=== PATIENT | male | born 1965 | race Caucasian/White ===

== ENCOUNTER 2018-12-01 09:53 | Day surgery (SDC) | payer BC ==
[2018-11-30 12:39] VITALS: BMI 30.4
[2018-12-01] MEDS ORDERED: oxyCODONE HCL 10 MG SUSTAINED ACTING TABLET PO ONE ×2 (12:20→12:30)
[2018-12-01] MEDS ORDERED: BUPIVACAINE LIPOSOME/PF (EXPAREL) 266 MG/20 ML VIAL ONE (13:14)
[2018-12-01] MEDS ORDERED: MIDAZOLAM HCL 2 MG/2 ML SINGLE DOSE VIAL ONE ×2 (13:14→13:53)
[2018-12-01] MEDS ORDERED: BUPIVACAINE HCL/PF (5 MG/ML) 30 ML VIAL IJ ONE (13:14)
[2018-12-01] MEDS ORDERED: fentaNYL CITRATE 250 MCG/5 ML VIAL ONE ×2 (13:30→14:51)
[2018-12-01] MEDS ORDERED: PROPOFOL 20 ML ONE ×10 (13:30→15:12)
[2018-12-01] MEDS ORDERED: GUM MASTIC/STORAX/MSAL/ALCOHOL 1 DRP DROPSBTL MC ONE (13:43)
[2018-12-01] MEDS ORDERED: LIDOCAINE 1%/EPI 1:100000 (20 ML MULTI DOSE VIAL) ONE (13:43)
[2018-12-01] MEDS ORDERED: THROMBIN (RECOMBINANT) 5,000 UNIT VIAL TP ONE (13:43)
[2018-12-01] MEDS ORDERED: THROMBIN (BOVINE) 5,000 UNIT VIAL TP ONE (14:55)
[2018-12-01] MEDS ORDERED: LIDOCAINE 1%/EPI 1:100000 (20 ML MULTI DOSE VIAL) INF ONE (14:55)
[2018-12-01] MEDS ORDERED: GELATIN SPONGE,ABSORBABLE 1 GM PACKET TP ONE (14:56)
[2018-12-01] MEDS ORDERED: LABETALOL HCL 5 MG/1 ML (100MG/20 ML VIAL) ONE (15:03)
[2018-12-01] MEDS ORDERED: oxyCODONE HCL 5 MG TABLET PO PRN ×6 (15:24→16:17)
[2018-12-01] MEDS ORDERED: LACTATED RINGERS SOLUTION 1,000 ML IV SCH ×2 (15:30→16:15)
[2018-12-01] MEDS ORDERED: ONDANSETRON 4 MG/2 ML VIAL IVPUSH PRN (16:09)
[2018-12-01] MEDS ORDERED: ACETAMINOPHEN 1000 MG/100 ML VIAL (NON FORMULARY) IVPB ONE (16:13)
--- NOTE | 2018-12-01 16:20 | OP ---
Operative Note - Note: Operative Date: 12/01/18 Pre-Operative Diagnosis: cervical stenosis Operation: anterior cervical disectomy fusion of C5-C6 and C6-C7 Surgeon: Charlie Ruth Corporate Real Estate Manager: Sera Taylor Anesthesiologist/ENVIRONMENTAL CONSTRUCTION ENGINEER: Jayda Jc Anesthesia: General Fluid Volume Replaced (mls): 1,800 Operative Report Dictated: Yes
--- NOTE | 2018-12-01 16:21 | SURG ---
Surgery Light Industrial Supervisor Note Light Industrial Supervisor: Sera Taylor PA-C Date of Service: 12/01/18 Diagnosis: cervical stenosis Procedure: Operation: anterior cervical disectomy fusion of C5-C6 and C6-C7 I was present for the entirety of the operative procedure. For further detail, please refer to operative report. Visit type - Case Type Case Type: Scheduled - Emergency Emergency Visit: No - New patient This patient is new to me today: Yes Date on this admission: 12/01/18
[2018-12-01] MEDS: ONDANSETRON 4 MG/2 ML VIAL IVPUSH PRN (17:12)
[2018-12-01] MEDS ORDERED: ACETAMINOPHEN INJECTION 100 ML IVPB ONE (17:13)
[2018-12-01] MEDS ORDERED: diazePAM 2 MG TABLET ONE (17:39)
[2018-12-01] MEDS ORDERED: ACETAMINOPHEN 500 MG TABLET (FP) PO SCH (18:00)
[2018-12-01] MEDS: diazePAM 2 MG TABLET PO SCH (18:00)
[2018-12-01] MEDS ORDERED: PSEUDOEPHEDRINE PO SCH (22:00)
[2018-12-01] MEDS ORDERED: CETIRIZINE HCL PO SCH (22:00)
[2018-12-01] MEDS ORDERED: [UNRECOGNIZED DRUG - OTHER] PO SCH (22:00)
[2018-12-01] MEDS: CEFAZOLIN 1 GM/D5W 1 GM/50 ML BAG IVPB SCH (22:04)
[2018-12-01] MEDS: DOCUSATE SODIUM 100 MG CAPSULE (FP) PO SCH (22:04)
[2018-12-02] MEDS: ONDANSETRON 4 MG/2 ML VIAL IVPUSH PRN (03:53)
[2018-12-02] MEDS: ACETAMINOPHEN 500 MG TABLET (FP) PO SCH ×2 (06:41→06:42)
[2018-12-02] MEDS: diazePAM 2 MG TABLET PO SCH (06:41)
[2018-12-02] MEDS: CEFAZOLIN 1 GM/D5W 1 GM/50 ML BAG IVPB SCH (06:42)
--- NOTE | 2018-12-02 07:34 | OP ---
DATE OF OPERATION: 12/01/2018 PREOPERATIVE DIAGNOSIS: Cervical stenosis, C5-C6, C6-C7. POSTOPERATIVE DIAGNOSIS: Cervical stenosis, C5-C6, C6-C7. PROCEDURE PERFORMED: 1. Anterior cervical discectomy and fusion, C5-C6. 2. Anterior cervical discectomy and fusion, C6-C7. 3. Placement of instrumentation, C5 to C7. SURGEON: Charlie Ruth MD CYBER SECURITY INSTRUCTOR: MAGGI Amaro ESTIMATED BLOOD LOSS: 50 mL. IV FLUIDS: Per Anesthesia. ANESTHESIA: General/NCP block. COMPLICATIONS: There were none. DISPOSITION: Patient brought to the PACU in stable condition. INDICATIONS FOR SURGERY: The patient is a 53-year-old gentleman who has been suffering from pain from his neck down his arm. He has also noticed significant weakness in his arm. X-rays and MRI were completed, which noted that he had cervical stenosis at C5-C6 and C6-C7. He had gone through an exhaustive course of treatment for this which included medications, physical therapy, as well as injections. Unfortunately, his pain continued to persist despite all this. At this point, risks, benefits, and alternatives were discussed, and the patient consented to surgery. OPERATIVE NOTE: Patient was brought into the operating room by the Anesthesia. After appropriate patient identification was performed, general anesthesia was given. NCP block was also given. Patient was placed supine on the OR table with his arms tucked in at his sides. A shoulder roll was placed beneath his neck to extend his neck to the point that he can tolerate in the preoperative holding area. A needle was taped onto his neck to sofie off the C5-C6 level, and x-rays taken to confirm this was correct. The needle was removed, and 10 mL of lidocaine with epinephrine was injected into his neck at this time. His neck was prepped and draped in the usual sterile manner. At this point, a time-out was completed. A 2-inch incision was made in the left side of his neck. Dissection was carried down to the platysma. The platysma was cut in line with the skin incision. Next, internal sternocleidomastoid as well as strap muscles was developed. Next, an internally rotated carotid sheath as well as trachea esophagus was developed. Peanuts were used to elevate off the prevertebral fascia. A needle was placed into the C5-C6. X-rays taken to confirm this was correct. Needle was removed, and Evelin pins were placed into the body of C5 and C7. A knife was used to incise the disc, and distraction was applied. A microscope was brought in. A Carrasco was used to remove the disc off of the end-plate using a series of pituitaries, Kerrrisons, and curettes. Discectomy was completed at this time. End-plates were decorticated. A cage filled with bone graft was placed into the C5-C6 and C6-C7. A screw was placed into the body of C5. A screw was placed into the body of C6. A screw was placed into the body of C7. [place] pins were removed. AP and lateral x-rays confirmed the instrumentation to be in good position. Final tightening was performed. The platysma was closed with a 2-0 Vicryl suture. Skin was closed with a 3-0 Monocryl suture. Dermabond was applied. Steri-Strips were applied. Sterile dressings were applied. Patient was placed supine on the OR bed, extubated in the OR, and brought to the PACU in stable condition. Rex [id number]
[2018-12-02] MEDS ORDERED: traMADol HCL 50 MG TABLET PO PRN (07:38)
[2018-12-02] MEDS ORDERED: oxyCODONE HCL 5 MG TABLET PO PRN (07:48)
--- NOTE | 2018-12-02 08:14 | PN ---
Progress Note (short form) - Note Progress Note: ANESTHESIA POSTOP 53 yo male POD#1 s/p ACDF under GETA Patient sitting in chair. Comfortable. N/V last night but much improved today. Pain adequately controlled. VSS, Afebrile Continue current care. Encouraged IS and ambulation as tolerated. Reassured patient N/V will subside.
[2018-12-02 09:14] VITALS: BP 165/92; PULSE 86; TEMP 98.2
[2018-12-02] MEDS: DOCUSATE SODIUM 100 MG CAPSULE (FP) PO SCH (09:43)
--- NOTE | 2018-12-02 17:32 | DS ---
Physical Exam: SUBJECTIVE: Patient seen and examined this am. He states that his RUE arm pain has improved and he is able to move it without pain. His nausea and vomiting have improved this am. No CP. OBJECTIVE: Vital Signs Temperature 98.2 F 12/02/18 09:13 Pulse Rate 86 12/02/18 09:13 Respiratory Rate 18 12/02/18 09:13 Blood Pressure 165/92 12/02/18 09:13 O2 Sat by Pulse Oximetry (%) 96 12/02/18 06:00 PHYSICAL EXAM GENERAL: The patient is awake, alert, and fully oriented, in no acute distress. NECK: Dressing c/d/i. No swelling and the neck remains soft. Soft collar in place. LUNGS: Breath sounds equal, clear to auscultation bilaterally. HEART: Regular rate and rhythm. ABDOMEN: Soft, nontender, nondistended. NEUROLOGICAL: Normal speech, gait not observed. [place] strength equal b/l. Raising b/l upper extremities above his head. LABS HOSPITAL COURSE: The patient was admitted to the Med-Surg Unit after an elective repair of their cervcial stenosis. Now, s/p ACDF C5-6 and C6-7. The day of surgery, the patient ambulated the hallways with assistance. Narcotic and non-narcotic pain management control was achieved with an oral and IV approach.An xray was obtained and confirmed hardware placement at C5-6 and C6 -7, no fractures or dislocations. Pat-operative IV ABX were administered. DVT prophylaxis was achieved with SCDs and early ambulation. The patient ambulated with Physical Therapy and no services were recommended upon discharge. Narcotic scripts and or muscle relaxants were checked with [facility] prior to escibe. The discharge instructions and an oral pain management plan were reviewed with the patient. All questions answered. Above plan discussed with Dr. Ruth and agreed. Date of Admission:12/01/18 Date of Discharge: 12/02/18 Minutes to complete discharge: 20 Visit type - Case Type Case Type: Scheduled - Emergency Emergency Visit: No - New patient This patient is new to me today: No
--- NOTE | 2018-12-06 16:59 | PATH ---
Surgical Pathology Report Patient Name: WU ALVARADO [facility]. Rec. #: [id number] /Age/Gender: 1965 (Age: 53) / M Account: [id number] Location: [facility] Taken: 12/01/2018 Received: 12/01/2018 Reported: 12/06/2018 Physicians: Charlie Ruth M.D. Specimen(s) Received CERVICAL DISC C5-7 Clinical History Cervical stenosis Final Diagnosis C5-7, CERVICAL DISC, DISCECTOMY: CARTILAGE WITH DEGENERATIVE CHANGES. Electronically Signed Bing Abarca M.D. Gross Description Received in formalin labeled "C5-7 cervical disc," is a 3.5 x 3.0 x 0.4 cm aggregate of johns fragments of fibrocartilaginous tissue. A career services representative portion is submitted in one cassette. /12/02/[address] [facility]12/02/2018
== END 2018-12-02 12:42 | disposition home or self-care (01) ==
LOC: FASU 09:53 → FM/S 18:00 → FASU 12-02 12:42
PROVIDERS: ATTEND Orthopaedic Surgery Orthopaedic Surgery of the Spine
PROC: 0RG10A0 Fusion of Cervical Vertebral Joint with Interbody Fusion Device, Anterior Approach, Anterior Column, Open Approach (ICD-10-PCS; 2018-12-01)
PROC: 0RG10K0 Fusion of Cervical Vertebral Joint with Nonautologous Tissue Substitute, Anterior Approach, Anterior Column, Open Approach (ICD-10-PCS; 2018-12-01)
PROC: 0RB30ZZ Excision of Cervical Vertebral Disc, Open Approach (ICD-10-PCS; principal; 2018-12-01 14:36)
DX: M48.02 Spinal stenosis, cervical region (principal)
CPT/HCPCS: 22551; 22552; 22845; 22853; C1889; 72050-TC-FY; 88304-TC; 94760; 97116-GP; 97161-GP; J0131